=== PATIENT | female | born 1955 | race Caucasian/White ===

== ENCOUNTER 2024-01-15 07:34 | Day surgery (SDC) | payer MEDICARE ==
[~2024-01-15] VITALS: Ht 170.2 cm; Wt 68.0 kg
[~2024-01-15 07:34] MED LIST: ALENDRONATE SOD70 MG PO; AREDS PO; BAYER ASPIRIN E81 MG PO; CRESTOR40 MG PO; D31000 UNIT PO; HYZAAR1 TA2 PO; IBUPROFEN600 MG PO; MOUNJARO7.5 MG SC; NEXIUM40 M1 PO; OS-CAL 500500 M1 PO; TRAMADOL HYDROC50 M1 PO
[2024-01-15] MEDS ORDERED: FAMOTIDINE 10MG/ML 2ML SDV IV ONE (08:29)
[2024-01-15] MEDS ORDERED: SODIUM CHLORIDE 0.9% 1,000 ML IV ONE (08:29)
[2024-01-15 10:40] VITALS: BP 126/79
[2024-01-15] MEDS ORDERED: LIDOCAINE HCL 2% 2ML SDV IV ONE (18:10)
[2024-01-15] MEDS ORDERED: PROPOFOL 500 MG/50 ML VIAL IV ONE (18:10)
== END 2024-01-15 10:56 | disposition home or self-care (01) ==
LOC: ENDO 07:34 → ORM 10:45 → ENDO 10:45
PROVIDERS: ATTEND Internal Medicine Gastroenterology
PROC: 0DBM8ZX Excision of Descending Colon, Via Natural or Artificial Opening Endoscopic, Diagnostic (ICD-10-PCS; principal; 2024-01-15)
PROC: 0DBL8ZX Excision of Transverse Colon, Via Natural or Artificial Opening Endoscopic, Diagnostic (ICD-10-PCS; 2024-01-15)
PROC: 0DB48ZX Excision of Esophagogastric Junction, Via Natural or Artificial Opening Endoscopic, Diagnostic (ICD-10-PCS; 2024-01-15)
PROC: 0DB78ZX Excision of Stomach, Pylorus, Via Natural or Artificial Opening Endoscopic, Diagnostic (ICD-10-PCS; 2024-01-15)
DX: D64.9 Anemia, unspecified (principal); D12.4 Benign neoplasm of descending colon; K57.30 Diverticulosis of large intestine without perforation or abscess without bleeding; K64.8 Other hemorrhoids; K29.70 Gastritis, unspecified, without bleeding; K31.89 Other diseases of stomach and duodenum; K44.9 Diaphragmatic hernia without obstruction or gangrene; I10 Essential (primary) hypertension

== ENCOUNTER 2024-08-26 10:05 | Emergency (ER) | payer OTHER, MEDICARE ==
[~2024-08-26] VITALS: Ht 170.2 cm; Wt 54.0 kg
[2024-08-26] VITALS (14 sets, daily range): BP systolic 124–160; BP diastolic 61–76
== END 2024-08-26 14:13 | disposition home or self-care (01) | DRG 605 ==
LOC: ED 10:05
DX: S00.83XA Contusion of other part of head, initial encounter (principal); M25.522 Pain in left elbow; R07.89 Other chest pain; M25.552 Pain in left hip; S49.91XA Unspecified injury of right shoulder and upper arm, initial encounter; I10 Essential (primary) hypertension; E11.9 Type 2 diabetes mellitus without complications; W01.0XXA Fall on same level from slipping, tripping and stumbling without subsequent striking against object, initial encounter; Y99.0 Civilian activity done for income or pay; Z79.82 Long term (current) use of aspirin; Z79.85 Long-term (current) use of injectable non-insulin antidiabetic drugs